=== PATIENT | male | born 1960 | race American Indian/Alaskan Native ===

== ENCOUNTER 2021-04-12 13:00 | Inpatient (IN) | payer MEDICAID ==
[2021-04-12] MEDS ORDERED: SODIUM CHLORIDE 0.9% 500 ML 500 ML IV ONE (13:38)
--- NOTE | 2021-04-12 13:39 | Emergency Department Report ---
ED Neuro Deficit HPI - General Chief Complaint: Neuro Symptoms/Deficit Stated Complaint: POSS STROKE/FACIAL DROOP Time Seen by Provider: 04/12/21 13:37 Source: patient, RN notes reviewed Mode of arrival: Wheelchair Limitations: Physical Limitation - History of Present Illness Initial Comments: The patient is a 60-year-old gentleman. He is not known to myself previously. He is right-hand dominant. He does not have a local primary care doctor. He sm okes tobacco, but denies other chronic medical conditions. He presents to the ER with a complaint of right arm, right leg weakness, right-sided facial droop, slurred speech, which were present upon waking up this morning at 8 or 9:00 in the morning. He believes his last known well time is going to bed last night, although he is not sure what specific time he went to bed. The patient fell this morning onto his right leg. He denies physical pain. He denies Covid symptomatology. His neurologic symptoms are constant, do not radiate anywhere, and do not have exacerbating or relieving factors. He feels fairly anxious at this time. -: unknown (Patient went to bed normal last night, and woke up this morning.) Location: speech, right face, right arm, right leg Presenting Symptoms: Present: Weak/Paralyzed One Side, Facial Droop/Numbness, Unable to Speak Clearly History of same: No Place: home Severity: severe Improves With: none Worsens With: none On Anticoagulants: No Context: other (Patient woke up with symptom) - Related Data Allergies/Adverse Reactions: Allergies Allergy/AdvReac Type Severity Reaction Status Date / Time No Known Allergies Allergy Unverified 04/12/21 13:07 ED Review of Systems ROS: Stated complaint: POSS STROKE/FACIAL DROOP Other details as noted in HPI Constitutional: denies: fever Eyes: denies: eye discharge ENT: denies: epistaxis Respiratory: denies: cough Cardiovascular: denies: chest pain Gastrointestinal: denies: abdominal pain, hematemesis, melena, hematochezia Musculoskeletal: denies: back pain Neurological: weakness, numbness Psychiatric: anxiety Hematological/Lymphatic: denies: easy bleeding ED Past Medical Hx - Past Medical History Previous Medical History?: Yes Hx Hypertension: Yes Hx Diabetes: Yes - Surgical History Past Surgical History?: Yes Additional Surgical History: hand surgery ED Neuro Physical Exam - General Limitations: Physical Limitation General appearance: alert, anxious, in distress, obese Suspected Stroke: Yes - Head Head exam: Present: atraumatic, normocephalic - Eye Eye exam: Present: normal appearance, PERRL, EOMI. Absent: nystagmus - ENT ENT exam: Present: normal exam, normal orophraynx, mucous membranes moist, normal external ear exam, other (There is a right-sided facial droop) - Neck Neck exam: Present: normal inspection, full ROM. Absent: tenderness, meningismus - Respiratory Respiratory exam: Present: normal lung sounds bilaterally. Absent: respiratory distress, wheezes, rales, rhonchi, stridor, decreased breath sounds - Cardiovascular Cardiovascular Exam: Present: regular rate, normal rhythm, normal heart sounds. Absent: bradycardia, tachycardia, irregular rhythm, systolic murmur, diastolic murmur, rubs, gallop - GI/Abdominal GI/Abdominal exam: Present: soft. Absent: distended, tenderness, guarding, rebound, rigid, pulsatile mass - Rectal Rectal exam: Present: deferred - Extremities Exam Extremities exam: Present: normal inspection, full ROM (Full range of motion left arm and left leg), other (2+ pulses noted in the bilateral upper and lower extremities. There is no palpable cord. negative Homans sign. Muscular compartments are soft. The pelvis is stable.). Absent: pedal edema, calf tenderness - Back Exam Back exam: Present: normal inspection. Absent: tenderness, CVA tenderness (R), CVA tenderness (L), paraspinal tenderness, vertebral tenderness - Neurological Exam Neurological exam: Present: alert, oriented X3, motor sensory deficit (There is 4 out of 5 strength right arm and right leg. There is a right-sided facial droop. The tongue is midline.) - NIHSS Assessment Interval: Baseline 1a. Level of Consciousness: alert/keenly responsive 1b. LOC Questions: answers both correctly 1c. LOC Commands: performs tasks correctly 2. Best Gaze: normal 3. Visual: no visual loss 4. Facial Palsy: partial paralysis 5b. Motor Arm Right: drift 5a. Motor Arm Left: no drift 6a. Motor Leg Left: no drift 6b. Motor Leg Right: drift 7. Limb Ataxia: present 2 limbs (Right arm and right leg.) 8. Sensory: normal 9. Best Language: no aphasia 10. Dysarthria: mild/moderate dysarthria 11. Extinction/Inattention: no abnormality Total Score: 7 Stroke Severity: Moderate Stroke - Psychiatric Psychiatric exam: Present: anxious - Skin Skin exam: Present: warm, dry, intact, normal color. Absent: rash ED Course Vital Signs 04/12/21 04/12/21 04/12/21 13:05 13:27 13:30 Temperature 98.2 F Pulse Rate 82 79 71 Respiratory 14 13 21 Rate Blood Pressure 217/109 226/114 O2 Sat by Pulse 99 98 97 Oximetry 04/12/21 04/12/21 04/12/21 14:26 15:00 15:46 Temperature Pulse Rate 69 70 79 Respiratory 20 18 14 Rate Blood Pressure 192/98 183/107 201/105 O2 Sat by Pulse 98 97 98 Oximetry 04/12/21 04/12/21 04/12/21 16:16 16:46 17:00 Temperature Pulse Rate 78 72 70 Respiratory 20 14 20 Rate Blood Pressure 194/102 173/101 178/104 O2 Sat by Pulse 95 96 98 Oximetry - Reevaluation(s) Reevaluation #1: 04/12/21 13:49 Differential diagnosis, including but not limited to: Stroke, large vessel occlusion, arterial dissection, hypertensive emergency Assessment and plan: 60-year-old gentleman, presenting with strokelike symptoms, manifest by right arm, right leg weakness, clumsiness, right-sided facial droop, and blood pressure 225 systolic. Patient woke up with symptoms, and is therefore not a TPA candidate. NIH score 7 for my examination, emergent CT angiogram head and neck requested. Code stroke called overhead, neurology consultation pending. Noncontrast CT scan of the brain negative for acute findings. Given blood pressure 225 systolic, labetalol ordered. Reassess after CT angiogram head and neck. Have discussed this plan of care with the patient who is amenable to the aforementioned. He did not fall and hit his head or neck today. There is no midline cervical spine pain or tenderness. 04/12/21 15:08 CT angiogram head and neck negative for acute findings that were require transfer for emergent endovascular intervention. Laboratory studies reviewed and appreciated. EKG pending. Aspirin will be ordered. Hospital physician, Dr. Edwards, to admit patient to the medical service. - Consultations Consultation #1: 04/12/21 14:24 Discussed history, physical, pertinent imaging studies and plan of care with n eurology on-call, Dr. Johnson. He is in agreement with the plan of care. Specifically, TPA not recommended given that patient woke up with symptoms. His NIH score on his examination is 4 for this patient. He is in agreement with acquisition of CT angiogram head and neck. - Lab Data Result diagrams: 04/12/21 13:35 04/12/21 13:35 Lab Results 04/12/21 04/12/21 04/12/21 Range/Units 13:07 13:35 13:35 WBC 5.1 (4.5-11.0) K/mm3 RBC 3.90 (3.65-5.03) M/mm3 Hgb 12.3 (11.8-15.2) gm/dl Hct 35.8 (35.5-45.6) % MCV 92 (84-94) fl MCH 32 (28-32) pg MCHC 34 (32-34) % RDW 13.8 (13.2-15.2) % Plt Count 218 (140-440) K/mm3 Add Manual Diff Complete Total Counted 100 Seg Neutrophils % [place] Seg Neuts % (Manual) 38.0 L (40.0-70.0) % Lymphocytes % (Manual) 51.0 H (13.4-35.0) % Reactive Lymphs % (Man) 4.0 % Monocytes % (Manual) 3.0 (0.0-7.3) % Eosinophils % (Manual) 4.0 (0.0-4.3) % Nucleated RBC % Not Reportable Seg Neutrophils # Man 1.9 (1.8-7.7) K/mm3 Band Neutrophils # 0.0 K/mm3 Lymphocytes # (Manual) 2.6 (1.2-5.4) K/mm3 Abs React Lymphs (Man) 0.2 K/mm3 Monocytes # (Manual) 0.2 (0.0-0.8) K/mm3 Eosinophils # (Manual) 0.2 (0.0-0.4) K/mm3 Basophils # (Manual) 0.0 (0.0-0.1) K/mm3 Metamyelocytes # 0.0 K/mm3 Myelocytes # 0.0 K/mm3 Promyelocytes # 0.0 K/mm3 Blast Cells # 0.0 K/mm3 WBC Morphology Not Reportable Hypersegmented Neuts Not Reportable Hyposegmented Neuts Not Reportable Hypogranular Neuts Not Reportable Smudge Cells Not Reportable Toxic Granulation Not Reportable Toxic Vacuolation Not Reportable Dohle Bodies Not Reportable Pelger-Huet Anomaly Not Reportable Natasha Rods Not Reportable Platelet Estimate Consistent w auto Clumped Platelets Not Reportable Plt Clumps, EDTA Not Reportable Large Platelets Not Reportable Giant Platelets Not Reportable Platelet Satelliting Not Reportable Plt Morphology Comment Not Reportable RBC Morphology Normal Dimorphic RBCs Not Reportable Polychromasia Not Reportable Hypochromasia Not Reportable Poikilocytosis Not Reportable Anisocytosis Not Reportable Microcytosis Not Reportable Macrocytosis Not Reportable Spherocytes Not Reportable Pappenheimer Bodies Not Reportable Sickle Cells Not Reportable Target Cells Not Reportable Tear Drop Cells Not Reportable Ovalocytes Not Reportable Helmet Cells Not Reportable [place] Bodies Not Reportable [place] Rings Not Reportable Dewitt Cells Not Reportable Bite Cells Not Reportable Crenated Cell Not Reportable Elliptocytes Not Reportable Acanthocytes (Spur) Not Reportable Rouleaux Not Reportable Hemoglobin C Crystals Not Reportable Schistocytes Not Reportable Malaria parasites Not Reportable Velasquez Bodies Not Reportable Hem Pathologist Commnt No PT 13.2 (12.2-14.9) Sec. INR 0.94 (0.87-1.13) APTT 29.4 (24.2-36.6) Sec. Thrombin Time (15.1-19.6) Sec. Sodium (137-145) mmol/L Potassium (3.6-5.0) mmol/L Chloride (98-107) mmol/L Carbon Dioxide (22-30) mmol/L Anion Gap mmol/L BUN (9-20) mg/dL Creatinine (0.8-1.3) mg/dL Estimated GFR ml/min BUN/Creatinine Ratio % Glucose (75-100) mg/dL POC Glucose 141 H (70-105) mg/dL Calcium (8.4-10.2) mg/dL Magnesium (1.7-2.3) mg/dL Total Creatine Kinase (55-170) units/L Troponin T (0.00-0.029) ng/mL 04/12/21 04/12/21 Range/Units 13:35 13:35 WBC (4.5-11.0) K/mm3 RBC (3.65-5.03) M/mm3 Hgb (11.8-15.2) gm/dl Hct (35.5-45.6) % MCV (84-94) fl MCH (28-32) pg MCHC (32-34) % RDW (13.2-15.2) % Plt Count (140-440) K/mm3 Add Manual Diff Total Counted Seg Neutrophils % Seg Neuts % (Manual) (40.0-70.0) % Lymphocytes % (Manual) (13.4-35.0) % Reactive Lymphs % (Man) % Monocytes % (Manual) (0.0-7.3) % Eosinophils % (Manual) (0.0-4.3) % Nucleated RBC % Seg Neutrophils # Man (1.8-7.7) K/mm3 Band Neutrophils # K/mm3 Lymphocytes # (Manual) (1.2-5.4) K/mm3 Abs React Lymphs (Man) K/mm3 Monocytes # (Manual) (0.0-0.8) K/mm3 Eosinophils # (Manual) (0.0-0.4) K/mm3 Basophils # (Manual) (0.0-0.1) K/mm3 Metamyelocytes # K/mm3 Myelocytes # K/mm3 Promyelocytes # K/mm3 Blast Cells # K/mm3 WBC Morphology Hypersegmented Neuts Hyposegmented Neuts Hypogranular Neuts Smudge Cells Toxic Granulation Toxic Vacuolation Dohle Bodies Pelger-Huet Anomaly Natasha Rods Platelet Estimate Clumped Platelets Plt Clumps, EDTA Large Platelets Giant Platelets Platelet Satelliting Plt Morphology Comment RBC Morphology Dimorphic RBCs Polychromasia Hypochromasia Poikilocytosis Anisocytosis Microcytosis Macrocytosis Spherocytes Pappenheimer Bodies Sickle Cells Target Cells Tear Drop Cells Ovalocytes Helmet Cells [place] Bodies [place] Rings Dewitt Cells Bite Cells Crenated Cell Elliptocytes Acanthocytes (Spur) Rouleaux Hemoglobin C Crystals Schistocytes Malaria parasites Velasquez Bodies Hem Pathologist Commnt PT (12.2-14.9) Sec. INR (0.87-1.13) APTT (24.2-36.6) Sec. Thrombin Time 17.1 (15.1-19.6) Sec. Sodium 140 (137-145) mmol/L Potassium 4.2 (3.6-5.0) mmol/L Chloride 103.0 (98-107) mmol/L Carbon Dioxide 30 (22-30) mmol/L Anion Gap 11 mmol/L BUN 15 (9-20) mg/dL Creatinine 1.3 (0.8-1.3) mg/dL Estimated GFR > 60 ml/min BUN/Creatinine Ratio 12 % Glucose 110 H (75-100) mg/dL POC Glucose (70-105) mg/dL Calcium 9.2 (8.4-10.2) mg/dL Magnesium 1.80 (1.7-2.3) mg/dL Total Creatine Kinase 697 H (55-170) units/L Troponin T < 0.010 (0.00-0.029) ng/mL Vital Signs 04/12/21 04/12/21 04/12/21 13:05 13:27 13:30 Temperature 98.2 F Pulse Rate 82 79 71 Respiratory 14 13 21 Rate Blood Pressure 217/109 226/114 O2 Sat by Pulse 99 98 97 Oximetry 04/12/21 04/12/21 04/12/21 14:26 15:00 15:46 Temperature Pulse Rate 69 70 79 Respiratory 20 18 14 Rate Blood Pressure 192/98 183/107 201/105 O2 Sat by Pulse 98 97 98 Oximetry 04/12/21 04/12/21 04/12/21 16:16 16:46 17:00 Temperature Pulse Rate 78 72 70 Respiratory 20 14 20 Rate Blood Pressure 194/102 173/101 178/104 O2 Sat by Pulse 95 96 98 Oximetry - EKG Data -: EKG Interpreted by [place] EKG shows normal: sinus rhythm Rate: normal 04/12/21 19:15 EKG interpreted at 19: 11 This is a sinus rhythm, rate 60 bpm, with a normal P wave axis, normal axis, left ventricular hypertrophy, first-degree AV block, poor R wave progression, T wave inversions. Abnormal EKG. Not a STEMI. No prior for comparison. - Radiology Data Radiology results: report reviewed, image reviewed [facility] [address] [place] [address] Cat Scan Report Signed Patient: ANDIE RAMIREZ MR#: [id number] 221 : 1960 Acct:[id number] Age/Sex: 60 / M ADM Date: 04/12/21 Loc: ED Attending Dr: Ordering Physician: CHIQUI ALEXANDER MD Date of Service: 04/12/21 Procedure(s): CT head/brain wo con Accession Number(s): [id number] cc: CHIQUI ALEXANDER MD . CT head/brain wo con INDICATION / CLINICAL INFORMATION: 60 years Male; neuro deficits <6hrs or sx present upon awakening. Left MCA infarct suspected. TECHNIQUE: Routine CT head without contrast. All CT scans at this location are performed using CT dose reduction for ALARA by means of automated exposure control. COMPARISON: None. FINDINGS: BRAIN / INTRACRANIAL CONTENTS: Very small corpus striatal infarct seen on the qupi-qtm-tyewbydacuteb without diffusion imaging by MRI. Otherwise, no acute hemorrhage, mass effect, midline shift, hydrocephalus, or acute, large territorial infarct. No signs of significant atrophy or chronic infarct. Mild, nonspecific white matter disease suggested. Note, the basilar artery is slightly hyperdense superiorly, which may be related to skull base artifact. No definitive signs of brainstem ischemia appreciated currently. CRANIOCERVICAL JUNCTION: No significant abnormality. ORBITS: No significant abnormality of visualized orbits. SINUSES / MASTOIDS: Mild to moderate mucosal thickening in the ethmoids ADDITIONAL FINDINGS: Atherosclerotic disease is seen in the anterior and posterior circulation. IMPRESSION: 1. No focal mass, hemorrhage, hydrocephalus, or acute, large territorial infarct. CODE STROKE: Exam Completed (BOX TOE FLANGER STITCHDOWNS/CDT): 04/12/2021 12:22 PM Exam Reviewed (BOX TOE FLANGER STITCHDOWNS/CDT): 12:30 PM Time of Communication (BOX TOE FLANGER STITCHDOWNS/CDT): 12:33 PM Licensed Practitioner Receiving Report: Dr. Alexander Signer Name: Daniel Arnold MD, III Signed: 04/12/2021 1:35 PM Workstation Name: [id number] Transcribed By: HR Dictated By: Daniel Arnold MD Electronically Authenticated By: Daniel Arnold MD Signed Date/Time: 04/12/21 1335 DD/ 1330 CT angio head INDICATION / CLINICAL INFORMATION: 60 years Male; Acute stroke. TECHNIQUE: Thin cut axial images obtained through the head during IV bolus contrast administration. Sagittal, coronal, and 3 plane MIP reconstructions performed by the technologist. NASCET type criteria used evaluate stenoses. Automated exposure control utilized for radiation reduction purposes. CO MPARISON: None available. FINDINGS: INTERNAL CAROTID ARTERIES: Focal areas of narrowing seen in the cavernous and communicating portions of both internal carotid arteries-right greater than left. No complete occlusion seen. VERTEBROBASILAR SYSTEM: No significant narrowing appreciated. DISTAL BRANCHES: Distal branches of the anterior, middle, and posterior cerebral arteries are fairly symmetric in appearance and number. ANEURYSM: None identified. ADDITIONAL FINDINGS: Prominent soft tissue is seen in the roof the nasopharynx, presumably related to reactive adenoidal tissue. Please clinically correlate. Dilated intraglandular ducts seen in both submandibular glands. No definitive signs of main submandibular duct involvement appreciated, however. No evidence of sialolith. Prominent soft tissue is seen in the vallecula, presumably related to lingual tonsillar tissue, which may be reactive. Please clinically correlate. IMPRESSION: Narrowing seen in both internal carotid arteries-right greater than left-as described above. No large vessel occlusion appreciated. Signer Name: Daniel Arnold MD, III Signed: 04/12/2021 1:48 PM Workstation Name: [id number] CT angio head INDICATION / CLINICAL INFORMATION: 60 years Male; Acute stroke. TECHNIQUE: Thin cut axial images obtained through the head during IV bolus contrast administration. Sagittal, coronal, and 3 plane MIP reconstructions performed by the technologist. NASCET type criteria used evaluate stenoses. Automated exposure control utilized for radiation reduction purposes. COMPARISON: None available. FINDINGS: INTERNAL CAROTID ARTERIES: Focal areas of narrowing seen in the cavernous and communicating portions of both internal carotid arteries-right greater than left. No complete occlusion seen. VERTEBROBASILAR SYSTEM: No significant narrowing appreciated. DISTAL BRANCHES: Distal branches of the anterior, middle, and posterior cerebral arteries are fairly symmetric in appearance and number. ANEURYSM: None identified. ADDITIONAL FINDINGS: Prominent soft tissue is seen in the roof the nasopharynx, presumably related to reactive adenoidal tissue. Please clinically correlate. Dilated intraglandular ducts seen in both submandibular glands. No definitive signs of main submandibular duct involvement appreciated, however. No evidence of sialolith. Prominent soft tissue is seen in the vallecula, presumably related to lingual tonsillar tissue, which may be reactive. Please clinically correlate. IMPRESSION: Narrowing seen in both internal carotid arteries-right greater than left-as described above. No large vessel occlusion appreciated. Signer Name: Daniel Arnold MD, III Signed: 04/12/2021 1:48 PM Workstation Name: [id number] - Core Measures Measure Exclusions: not indicated - Thrombolytic Inclusion/Exclusion Thrombolytic Exclusion Criteria: Onset of Symptoms Unknown Critical Care Time: Yes Critical care time in (mins) excluding proc time.: 35 Critical care attestation.: If time is entered above; I have spent that time in minutes in the direct care of this critically ill patient, excluding procedure time. ED Disposition Clinical Impression: Acute ischemic stroke, Hypertensive urgency, malignant Disposition: DC-09 OP ADMIT IP TO THIS HOSP Is pt being admited?: Yes Does the pt Need Aspirin: Yes Condition: Serious Referrals: PRIMARY CARE, [Primary Care Provider] - 3-5 Days
--- NOTE | 2021-04-12 13:39 | Cat Scan Report ---
. CT head/brain wo con INDICATION / CLINICAL INFORMATION: 60 years Male; neuro deficits <6hrs or sx present upon awakening. Left MCA infarct suspected. TECHNIQUE: Routine CT head without contrast. All CT scans at this location are performed using CT dos e reduction for ALARA by means of automated exposure control. COMPARISON: None. FINDINGS: BRAIN / INTRACRANIAL CONTENTS: Very small corpus striatal infarct seen on the echc-qls-plexzjbrqjgeu without diffusion imaging by MRI. Otherwise, no acute hemorrhage, mass effect, midline shift, hydrocephalus, or acute, large territori al infarct. No signs of significant atrophy or chronic infarct. Mild, nonspecific white matter diseas e suggested. Note, the basilar artery is slightly hyperdense superiorly, which may be related to skull base artifa ct. No definitive signs of brainstem ischemia appreciated currently. CRANIOCERVICAL JUNCTION: No significant abnormality. ORBITS: No significant abnormality of visualized orbits. SINUSES / MASTOIDS: Mild to moderate mucosal thickening in the ethmoids ADDITIONAL FINDINGS: Atherosclerotic disease is seen in the anterior and posterior circulation. IMPRESSION: 1. No focal mass, hemorrhage, hydrocephalus, or acute, large territorial infarct. CODE STROKE: Exam Completed (CLINICAL GENETICIST/CDT): 04/12/2021 12:22 PM Exam Reviewed (CLINICAL GENETICIST/CDT): 12:30 PM Time of Communication (CLINICAL GENETICIST/CDT): 12:33 PM Licensed Practitioner Receiving Report: Dr. Alexander Signer Name: Daniel Arnold MD, III Signed: 04/12/2021 1:35 PM Workstation Name: [email or web address]
[2021-04-12 13:46] LABS: Hematocrit 35.8 % (35.5-45.6); Hemoglobin 12.3 gm/dl (11.8-15.2); Mean Corpuscular HGB Conc 34 % (32-34); Mean Corpuscular Volume 92 fl (84-94); Platelet Count 218 K/mm3 (140-440); Red Cell Distribution Width 13.8 % (13.2-15.2)
[2021-04-12 13:58] LABS: INR 0.94 (0.87-1.13)
[2021-04-12 13:59] LABS: Partial Thromboplastin Time 29.4 Sec. (24.2-36.6)
[2021-04-12 14:11] LABS: BUN/Creatinine Ratio 12; Blood Urea Nitrogen 15 mg/dL (9-20); Calcium 9.2 mg/dL (8.4-10.2); Hemolysis Index 3
[2021-04-12] MEDS ORDERED: SODIUM CHLORIDE 0.9% 1000 ML 1,000 ML ONE (14:22)
--- NOTE | 2021-04-12 14:43 | Consultation ---
Medications and Allergies Allergies Allergy/AdvReac Type Severity Reaction Status Date / Time No Known Allergies Allergy Unverified 04/12/21 13:07 Results - Laboratory Findings CBC and BMP: 04/12/21 13:35 04/12/21 13:35 Abnormal Lab Findings: Abnormal Labs 04/12/21 04/12/21 13:07 13:35 Glucose 110 H POC Glucose 141 H Total Creatine Kinase 697 H Assessment and Plan [facility] Consult Note # Demographics Consult Type: Acute Stroke Level 2 (4.5-24 hrs) Patient Location: Emergency Room First Name: Eddie Castillo Last Name: Yonny Date of : 1960 Age: 60 Gender: Male Time of Initial Page ( Time): 04/12/2021, 13:15 Time of Return Call ( Time): 04/12/2021, 13:17 # HPI History: 60 yo man awoke this morning wtih right-sided numbness and weakness. Last known normal at 23:00 last night. Is currently no on any medication Last Known Normal: I have collected independent history specific to time last normal or last known well. We have collaborated with the provider and at this time, we have the most current timeline with the information that is available. 23:00 # Scores Time of exam and NIHSS ( Time): 04/12/2021, 13:40 Level of Consciousness 1a: [0] = Alert; keenly responsive LOC Questions 1b: [0] = Answers both questions correctly LOC Commands 1c: [0] = Performs both tasks correctly Best Gaze 2: [0] = Normal Visual 3: [0] = No visual loss Facial Palsy 4: [1] = Minor paralysis Motor Arm Left 5a: [0] = No drift Motor Arm Right 5b: [1] = Drift Motor Leg Left 6a: [0] = No drift Motor Leg Right 6b: [0] = No drift Limb Ataxia 7: [0] = Absent Sensory 8: [1] = Sxmy-rs-vozpgqyk sensory loss Best Language 9: [0] = No aphasia Dysarthria 10: [1] = Lkyr-is-eswaornv dysarthria Extinction and Inattention 11: [0] = No abnormality NIHSS Total: 4 # Exam SBP: 226 DBP: 114 # PMH-FH- Past Medical History: Diabetes hypertension Social History: non-smoker occasional alcohol Medications: denies Allergies: NKDA # Data Head CT: no bleed per radiologist read # Assessment Impression: Right-sided numbness since awakening this morning. Symptoms concerning for acute stroke. Is not a candidate for IV tpa. # Plan Thrombolytic/Intervention: NOT IV Thrombolytic or IA Intervention Thrombolytic Exclusion: > 4.5 hours Intraarterial Exclusion: other CTA pending, call back if abnormal Target Blood Pressure: SBP < 220 Labs: hemoglobin A1c liver function tests Imaging: (urgency: STAT): CT Angiogram Head and CT Angiogram Neck Imaging: (urgency: routine): MRI Brain without contrast Diagnostic Test: echo with bubble study Therapy/Evaluation: NPO until swallow evaluation PT/OT evaluation speech/swallow consultation Medication: aspirin 81 mg daily DVT Prophylaxis: SCD chemical DVT prophylaxis Other: LDL < 70 permissive hypertension telemetry monitoring I have discussed my recommendations with the referring provider Disposition: admit
--- NOTE | 2021-04-12 14:53 | Cat Scan Report ---
CT angio head INDICATION / CLINICAL INFORMATION: 60 years Male; Acute stroke. TECHNIQUE: Thin cut axial images obtained through the head during IV bolus contrast administration. S agittal, coronal, and 3 plane MIP reconstructions performed by the technologist. NASCET type criteria used evaluate stenoses. Automated exposure control utilized for radiation reduction purposes. COMPARISON: None available. FINDINGS: INTERNAL CAROTID ARTERIES: Focal areas of narrowing seen in the cavernous and communicating portions of both internal carotid arteries-right greater than left. No complete occlusion seen. VERTEBROBASILAR SYSTEM: No significant narrowing appreciated. DISTAL BRANCHES: Distal branches of the anterior, middle, and posterior cerebral arteries are fairly symmetric in appearance and number. ANEURYSM: None identified. ADDITIONAL FINDINGS: Prominent soft tissue is seen in the roof the nasopharynx, presumably related to reactive adenoidal tissue. Please clinically correlate. Dilated intraglandular ducts seen in both submandibular glands. No definitive signs of main submandib ular duct involvement appreciated, however. No evidence of sialolith. Prominent soft tissue is seen in the vallecula, presumably related to lingual tonsillar tissue, which may be reactive. Please clinically correlate. IMPRESSION: Narrowing seen in both internal carotid arteries-right greater than left-as described above. No large vessel occlusion appreciated. Signer Name: Daniel Arnold MD, III Signed: 04/12/2021 2:48 PM Workstation Name: [email or web address]
--- NOTE | 2021-04-12 14:56 | Cat Scan Report ---
. CT angio neck INDICATION / CLINICAL INFORMATION: 60 years Male; Acute stroke. TECHNIQUE: Thin cut axial images obtained through the head during IV bolus contrast administration. S agittal, coronal, and 3 plane MIP reconstructions performed by the technologist. NASCET type criteria used evaluate stenoses. All CT scans at this location are performed using CT dose reduction for ALAR A by means of automated exposure control. COMPARISON: None available. FINDINGS: ARCH: Normal aortic arch branching suggested. CAROTID ARTERIES: The visualized common and internal carotid arteries are widely patent. Atherosclero tic disease seen in the carotid bifurcation regions bilaterally without significant sequela. VERTEBRAL ARTERIES: Codominant vertebral system seen. No significant stenosis appreciated. ADDITIONAL FINDINGS: Disc space narrowing seen at C6-7 and C5-6. Mild disc disease seen at these leve ls, resulting in mild canal narrowing. Moderate to marked osseous foraminal narrowing seen bilaterall y at C6-7 from uncinate and facet hypertrophy. Similar findings noted on the right at C5-6. There is moderate facet hypertrophy at multiple levels. Most marked findings on the right may be at C 2-3, while most marked findings on the left are at C3-4. Poor dentition noted. Intraglandular ductal dilatation seen in both submandibular gland. No definitive signs of sialolith. IMPRESSION: No significant stenosis appreciated on this CTA of the neck. Signer Name: Daniel Arnold MD, III Signed: 04/12/2021 2:52 PM Workstation Name: [email or web address]
[2021-04-12] MEDS ORDERED: ASPIRIN 81 MG TAB CHEW PO ONE (15:09)
[2021-04-12 15:47] LABS: Platelet Estimate Consistent w Auto; RBC Morphology Normal; Total Cells Counted 100
[2021-04-12] MEDS ORDERED: SENNOSIDES 8.6 MG TAB PO PRN (20:55)
[2021-04-12] MEDS ORDERED: METOCLOPRAMIDE 10 MG/2 ML INJ IV PRN (20:55)
[2021-04-12] MEDS ORDERED: MAGNESIUM HYDROXIDE (MOM) ORAL LIQD UDC PO PRN (20:55)
[2021-04-12] MEDS ORDERED: ALUM-MAG HYDROXIDE-SIMETHICONE 200-200-20MG/5ML ORAL LIQD 30 ML PO PRN (20:55)
[2021-04-12] MEDS ORDERED: ONDANSETRON 4 MG/2 ML INJ IV PRN (20:55)
[2021-04-12] MEDS ORDERED: ACETAMINOPHEN 325 MG TAB PO PRN (20:55)
[2021-04-13] MEDS ORDERED: hydrALAZINE 20 MG/1 ML INJ IV ONE (00:11)
[2021-04-13 06:38] LABS: Hematocrit 36.7 % (35.5-45.6); Hemoglobin 12.5 gm/dl (11.8-15.2); Mean Corpuscular HGB Conc 34 % (32-34); Mean Corpuscular Volume 92 fl (84-94); Platelet Count 222 K/mm3 (140-440); Red Blood Count 4.01 M/mm3 (3.65-5.03); Red Cell Distribution Width 13.7 % (13.2-15.2)
[2021-04-13 06:52] LABS: Alanine Aminotransferase 15 units/L (7-56); Albumin 3.7 g/dL (3.9-5); BUN/Creatinine Ratio 10; Blood Urea Nitrogen 10 mg/dL (9-20); Calcium 8.9 mg/dL (8.4-10.2); Hemolysis Index 3
[2021-04-13 08:10] LABS: Total Cells Counted 100
[2021-04-13 08:11] LABS: Anisocytosis Few
--- NOTE | 2021-04-13 10:16 | Progress Note ---
Assessment and Plan Assessment and plan: Patient is a 60-year-old male who presented to the ER with complaint of right arm, right leg weakness, right-sided facial droop, slurred speech, which were present upon waking up this morning at 8 or 9:00 in the morning. He is right- hand dominant. He does use tobacco. He believes his last known well time is going to bed last night, although he is not sure what specific time he went to bed. He also reported a fall this morning onto his right leg. He denies physical pain. He denies Covid symptomatology. His neurologic symptoms are constant, do not radiate anywhere, and do not have exacerbating or relieving factors. He feels fairly anxious at this time. -: unknown (Patient went to bed normal last night, and woke up this morning.) Location: speech, right face, right arm, right leg Presenting Symptoms: Present: Weak/Paralyzed One Side, Facial Droop/Numbness, Unable to Speak Clearly Work-up in the ER including CT head and CT angio head and neck were unremarkable Hypertensive urgency Right sided weakness with facial droop likely crytogenic CVA Tobacco use disorder Bradycardia Facial droop Chronic back pain ambulates with a cane Hypokalemia Plan Supportive care Replace potassium Continue aspirin and statin therapy Tobacco cessation was counseled for 15-minute Obtain PT OT evaluation Obtain MRI of the brain Obtain echocardiogram Obtain neurology consultation We will start patient on hydrochlorothiazide and as needed hydralazine for better blood pressure control. If no improvement will add an LASHONDA inhibitor.. History Interval history: Patient seen and examined this morning resting comfortably still with left facial droop still with mild right-sided weakness admits to tobacco use occasional alcohol use and noncompliant with aspirin. Has chronic back pain fro m previous injuries. As a result ambulates with a cane Hospitalist Physical - Physical exam Narrative exam: VITAL SIGNS: Reviewed. GENERAL: The patient appears normally developed, Vital signs as documented. HEAD: No signs of head trauma. EYES: Pupils are equal. Extraocular motions intact. EARS: Hearing grossly intact. MOUTH: Oropharynx is normal. NECK: No adenopathy, no JVD. CHEST: Chest with clear breath sounds bilaterally. No wheezes, rales, or rhonchi. CARDIAC: Regular rate and rhythm. S1 and S2, without murmurs, gallops, or rubs. VASCULAR: No Edema. Peripheral pulses normal and equal in all extremities. ABDOMEN: Soft, non tender and non distended. No rebound or guarding, and no masses palpated. Bowel Sounds normal. MUSCULOSKELETAL: Good range of motion of all major joints. Extremities without clubbing, cyanosis or edema. NEUROLOGIC EXAM: Alert and oriented x 3 left facial droop motor strength on the right is 4/5. Speech normal. Follows commands. Gait not assessed at this ti ma PSYCHIATRIC: Mood normal. SKIN: detail exam as documented in skin assessment - Constitutional Vitals: Temp Pulse Resp BP Pulse Ox 98.6 F 79 20 174/89 100 04/13/21 04:29 04/13/21 04:29 04/13/21 04:29 04/13/21 04:29 04/13/21 04:29 HEART Score - HEART Score Troponin: Troponin T < 0.010 ng/mL (0.00-0.029) 04/12/21 13:35 Results - Labs CBC & Chem 7: 04/13/21 05:27 04/13/21 05:27 Labs: Laboratory Last Values WBC 5.0 K/mm3 (4.5-11.0) 04/13/21 05:27 RBC 4.01 M/mm3 (3.65-5.03) 04/13/21 05:27 Hgb 12.5 gm/dl (11.8-15.2) 04/13/21 05:27 Hct 36.7 % (35.5-45.6) 04/13/21 05:27 MCV 92 fl (84-94) 04/13/21 05:27 MCH 31 pg (28-32) 04/13/21 05:27 MCHC 34 % (32-34) 04/13/21 05:27 RDW 13.7 % (13.2-15.2) 04/13/21 05:27 Plt Count 222 K/mm3 (140-440) 04/13/21 05:27 Lymph % (Auto) Police Patrol Officer 04/13/21 05:27 Add Manual Diff Complete 04/13/21 05:27 Total Counted 100 04/13/21 05:27 Seg Neutrophils % Police Patrol Officer 04/13/21 05:27 Seg Neuts % (Manual) 37.0 % (40.0-70.0) L 04/13/21 05:27 Lymphocytes % (Manual) 54.0 % (13.4-35.0) H 04/13/21 05:27 Reactive Lymphs % (Man) 4.0 % 04/12/21 13:35 Monocytes % (Manual) 6.0 % (0.0-7.3) 04/13/21 05:27 Eosinophils % (Manual) 3.0 % (0.0-4.3) 04/13/21 05:27 Nucleated RBC % Not Reportable 04/13/21 05:27 Seg Neutrophils # Man 1.9 K/mm3 (1.8-7.7) 04/13/21 05:27 Band Neutrophils # 0.0 K/mm3 04/13/21 05:27 Lymphocytes # (Manual) 2.7 K/mm3 (1.2-5.4) 04/13/21 05:27 Abs React Lymphs (Man) 0.0 K/mm3 04/13/21 05:27 Monocytes # (Manual) 0.3 K/mm3 (0.0-0.8) 04/13/21 05:27 Eosinophils # (Manual) 0.2 K/mm3 (0.0-0.4) 04/13/21 05:27 Basophils # (Manual) 0.0 K/mm3 (0.0-0.1) 04/13/21 05:27 Metamyelocytes # 0.0 K/mm3 04/13/21 05:27 Myelocytes # 0.0 K/mm3 04/13/21 05:27 Promyelocytes # 0.0 K/mm3 04/13/21 05:27 Blast Cells # 0.0 K/mm3 04/13/21 05:27 WBC Morphology Not Reportable 04/13/21 05:27 Hypersegmented Neuts Not Reportable 04/13/21 05:27 Hyposegmented Neuts Not Reportable 04/13/21 05:27 Hypogranular Neuts Not Reportable 04/13/21 05:27 Smudge Cells Not Reportable 04/13/21 05:27 Toxic Granulation Not Reportable 04/13/21 05:27 Toxic Vacuolation Not Reportable 04/13/21 05:27 Dohle Bodies Not Reportable 04/13/21 05:27 Pelger-Huet Anomaly Not Reportable 04/13/21 05:27 Natasha Rods Not Reportable 04/13/21 05:27 Platelet Estimate Not Reportable 04/13/21 05:27 Clumped Platelets Not Reportable 04/13/21 05:27 Plt Clumps, EDTA Not Reportable 04/13/21 05:27 Large Platelets Not Reportable 04/13/21 05:27 Giant Platelets Not Reportable 04/13/21 05:27 Platelet Satelliting Not Reportable 04/13/21 05:27 Plt Morphology Comment Not Reportable 04/13/21 05:27 RBC Morphology Not Reportable 04/13/21 05:27 Dimorphic RBCs Not Reportable 04/13/21 05:27 Polychromasia Not Reportable 04/13/21 05:27 Hypochromasia Not Reportable 04/13/21 05:27 Poikilocytosis Not Reportable 04/13/21 05:27 Anisocytosis Few 04/13/21 05:27 Microcytosis Not Reportable 04/13/21 05:27 Macrocytosis Not Reportable 04/13/21 05:27 Spherocytes Not Reportable 04/13/21 05:27 Pappenheimer Bodies Not Reportable 04/13/21 05:27 Sickle Cells Not Reportable 04/13/21 05:27 Target Cells Not Reportable 04/13/21 05:27 Tear Drop Cells Not Reportable 04/13/21 05:27 Ovalocytes Not Reportable 04/13/21 05:27 Helmet Cells Not Reportable 04/13/21 05:27 [place]ke[place] Bodies Not Reportable 04/13/21 05:27 [place] Rings Not Reportable 04/13/21 05:27 [place] Cells Not Reportable 04/13/21 05:27 Bite Cells Not Reportable 04/13/21 05:27 Crenated Cell Not Reportable 04/13/21 05:27 Elliptocytes Not Reportable 04/13/21 05:27 Acanthocytes (Spur) Not Reportable 04/13/21 05:27 Rouleaux Not Reportable 04/13/21 05:27 Hemoglobin C Crystals Not Reportable 04/13/21 05:27 Schistocytes Not Reportable 04/13/21 05:27 Malaria parasites Not Reportable 04/13/21 05:27 Velasquez Bodies Not Reportable 04/13/21 05:27 Hem Pathologist Commnt No 04/13/21 05:27 PT 13.2 Sec. (12.2-14.9) 04/12/21 13:35 INR 0.94 (0.87-1.13) 04/12/21 13:35 APTT 29.4 Sec. (24.2-36.6) 04/12/21 13:35 Thrombin Time 17.1 Sec. (15.1-19.6) 04/12/21 13:35 Sodium 138 mmol/L (137-145) 04/13/21 05:27 Potassium 3.5 mmol/L (3.6-5.0) L 04/13/21 05:27 Chloride 104.5 mmol/L (98-107) 04/13/21 05:27 Carbon Dioxide 24 mmol/L (22-30) 04/13/21 05:27 Anion Gap 13 mmol/L 04/13/21 05:27 BUN 10 mg/dL (9-20) 04/13/21 05:27 Creatinine 1.0 mg/dL (0.8-1.3) 04/13/21 05:27 Estimated GFR > 60 ml/min 04/13/21 05:27 BUN/Creatinine Ratio 10 % 04/13/21 05:27 Glucose 142 mg/dL (75-100) H 04/13/21 05:27 POC Glucose 141 mg/dL (70-105) H 04/12/21 13:07 Hemoglobin A1c 7.0 % (4-6) H 04/12/21 21:02 Calcium 8.9 mg/dL (8.4-10.2) 04/13/21 05:27 Magnesium 1.80 mg/dL (1.7-2.3) 04/12/21 13:35 Total Bilirubin 0.40 mg/dL (0.1-1.2) 04/13/21 05:27 AST 25 units/L (5-40) 04/13/21 05:27 ALT 15 units/L (7-56) 04/13/21 05:27 Alkaline Phosphatase 63 units/L (35-129) 04/13/21 05:27 Total Creatine Kinase 697 units/L (55-170) H 04/12/21 13:35 Troponin T < 0.010 ng/mL (0.00-0.029) 04/12/21 13:35 Total Protein 6.8 g/dL (6.3-8.2) 04/13/21 05:27 Albumin 3.7 g/dL (3.9-5) L 04/13/21 05:27 Albumin/Globulin Ratio 1.2 % 04/13/21 05:27 Crews/IV: Voiding Method Toilet Active Medications - Current Medications Current Medications: Generic Name Dose Route Start Last Admin Trade Name Freq PRN Reason Stop Dose Admin Acetaminophen 650 mg 04/12/21 20:55 Acetaminophen 325 Mg Tab PO Q4H PRN Pain MILD(1-3)/Fever >100.5/DELAROSA Al Hydrox/Mg Hydrox/Simethicone 30 ml 04/12/21 20:55 Alum-Mag Hydroxide-Simethicone [id number]/5ml Oral Liqd 30 Ml PO Q4H PRN Indigestion Aspirin 81 mg 04/14/21 10:00 Aspirin 81 Mg Tab Chew PO QDAY [facility] Atorvastatin Calcium 40 mg 04/13/21 22:00 Atorvastatin 40 Mg Tab PO QHS [facility] Hydrochlorothiazide 25 mg 04/13/21 11:00 Hydrochlorothiazide 25 Mg Tab PO QDAY DON Magnesium Hydroxide 30 ml 04/12/21 20:55 Magnesium Hydroxide (Mom) Oral Liqd Udc PO Q4H PRN Constipation Metoclopramide HCl 10 mg 04/12/21 20:55 Metoclopramide 10 Mg/2 Ml Inj IV Q6H PRN Nausea And Vomiting Ondansetron HCl 4 mg 04/12/21 20:55 Ondansetron 4 Mg/2 Ml Inj IV Q8H PRN Nausea And Vomiting Senna 8.6 mg 04/12/21 20:55 Sennosides 8.6 Mg Tab PO Q12HR PRN Constipation Sodium Chloride 10 ml 04/12/21 22:00 04/13/21 09:46 Sodium Chloride 0.9% 10 Ml Flush Syringe IV 10 ml BID DON Administration Sodium Chloride 10 ml 04/12/21 20:55 Sodium Chloride 0.9% 10 Ml Flush Syringe IV PRN PRN LINE FLUSH Nutrition/Malnutrition Assess - Dietary Evaluation Nutrition/Malnutrition Findings: Nutrition Notes Start: 04/13/21 09:43 Freq: Status: Active Protocol: Document 04/13/21 09:43 ROSELYN (Rec: 04/13/21 09:43 ROSELYN [id number]) Nutrition Notes Need for Assessment generated from: white work cleaner Initial or Follow up Brief Note Subjective/Other Information RN screen for skin risk. Brendon score 20. Likely an error. Nutrition Intervention Revisit per MD consult or patient Sign Off request:
[2021-04-13] MEDS ORDERED: hydrALAZINE 20 MG/1 ML INJ IV PRN (10:19)
[2021-04-13] MEDS ORDERED: atenoloL 25 MG TAB PO SCH (11:00)
[2021-04-13] MEDS: hydroCHLOROthiazide 25 MG TAB PO SCH (13:05)
--- NOTE | 2021-04-13 13:20 | Electrocardiograph Report ---
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
[2021-04-14] MEDS: ASPIRIN 81 MG TAB CHEW PO SCH (10:43)
[2021-04-14] MEDS: hydroCHLOROthiazide 25 MG TAB PO SCH (10:43)
--- NOTE | 2021-04-14 11:27 | Progress Note ---
Assessment and Plan Assessment and plan: Patient is a 60-year-old male who presented to the ER with complaint of right arm, right leg weakness, right-sided facial droop, slurred speech, which were present upon waking up this morning at 8 or 9:00 in the morning. He is right- hand dominant. He does use tobacco. He believes his last known well time is going to bed last night, although he is not sure what specific time he went to bed. He also reported a fall this morning onto his right leg. He denies physical pain. He denies Covid symptomatology. His neurologic symptoms are constant, do not radiate anywhere, and do not have exacerbating or relieving factors. He feels fairly anxious at this time. 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 If no improvement will add an LASHONDA inhibitor.. History Interval history: Patient seen and examined this morning resting comfortably still with left facial droop still with mild right-sided weakness admits to tobacco use occasion al alcohol use and noncompliant with aspirin. Has chronic back pain from previous injuries. As a result ambulates with a cane Hospitalist Physical - Physical exam Narrative exam: VITAL SIGNS: Reviewed. GENERAL: The patient appears normally developed, Vital signs as documented. HEAD: No signs of head trauma. EYES: Pupils are equal. Extraocular motions intact. EARS: Hearing grossly intact. MOUTH: Oropharynx is normal. NECK: No adenopathy, no JVD. CHEST: Chest with clear breath sounds bilaterally. No wheezes, rales, or rhonchi. CARDIAC: Regular rate and rhythm. S1 and S2, without murmurs, gallops, or ru bs. VASCULAR: No Edema. Peripheral pulses normal and equal in all extremities. ABDOMEN: Soft, non tender and non distended. No rebound or guarding, and no masses palpated. Bowel Sounds normal. MUSCULOSKELETAL: Good range of motion of all major joints. Extremities without clubbing, cyanosis or edema. NEUROLOGIC EXAM: Alert and oriented x 3 left facial droop motor strength on the right is 4/5. Speech normal. Follows commands. Gait not assessed at this time PSYCHIATRIC: Mood normal. SKIN: detail exam as documented in skin assessment - Constitutional Vitals: Temp Pulse Resp BP Pulse Ox 98.3 F 69 20 122/57 96 04/14/21 04:17 04/14/21 08:15 04/14/21 08:15 04/14/21 04:17 04/14/21 09:17 HEART Score - HEART Score Troponin: Troponin T < 0.010 ng/mL (0.00-0.029) 04/12/21 13:35 Results - Labs CBC & Chem 7: 04/13/21 05:27 04/13/21 05:27 Labs: Laboratory Last Values WBC 5.0 K/mm3 (4.5-11.0) 04/13/21 05:27 RBC 4.01 M/mm3 (3.65-5.03) 04/13/21 05:27 Hgb 12.5 gm/dl (11.8-15.2) 04/13/21 05:27 Hct 36.7 % (35.5-45.6) 04/13/21 05:27 MCV 92 fl (84-94) 04/13/21 05:27 MCH 31 pg (28-32) 04/13/21 05:27 MCHC 34 % (32-34) 04/13/21 05:27 RDW 13.7 % (13.2-15.2) 04/13/21 05:27 Plt Count 222 K/mm3 (140-440) 04/13/21 05:27 Lymph % (Auto) Sr. Manager [employer] 04/13/21 05:27 Add Manual Diff Complete 04/13/21 05:27 Total Counted 100 04/13/21 05:27 Seg Neutrophils % Sr. Manager [employer] 04/13/21 05:27 Seg Neuts % (Manual) 37.0 % (40.0-70.0) L 04/13/21 05:27 Lymphocytes % (Manual) 54.0 % (13.4-35.0) H 04/13/21 05:27 Reactive Lymphs % (Man) 4.0 % 04/12/21 13:35 Monocytes % (Manual) 6.0 % (0.0-7.3) 04/13/21 05:27 Eosinophils % (Manual) 3.0 % (0.0-4.3) 04/13/21 05:27 Nucleated RBC % Not Reportable 04/13/21 05:27 Seg Neutrophils # Man 1.9 K/mm3 (1.8-7.7) 04/13/21 05:27 Band Neutrophils # 0.0 K/mm3 04/13/21 05:27 Lymphocytes # (Manual) 2.7 K/mm3 (1.2-5.4) 04/13/21 05:27 Abs React Lymphs (Man) 0.0 K/mm3 04/13/21 05:27 Monocytes # (Manual) 0.3 K/mm3 (0.0-0.8) 04/13/21 05:27 Eosinophils # (Manual) 0.2 K/mm3 (0.0-0.4) 04/13/21 05:27 Basophils # (Manual) 0.0 K/mm3 (0.0-0.1) 04/13/21 05:27 Metamyelocytes # 0.0 K/mm3 04/13/21 05:27 Myelocytes # 0.0 K/mm3 04/13/21 05:27 Promyelocytes # 0.0 K/mm3 04/13/21 05:27 Blast Cells # 0.0 K/mm3 04/13/21 05:27 WBC Morphology Not Reportable 04/13/21 05:27 Hypersegmented Neuts Not Reportable 04/13/21 05:27 Hyposegmented Neuts Not Reportable 04/13/21 05:27 Hypogranular Neuts Not Reportable 04/13/21 05:27 Smudge Cells Not Reportable 04/13/21 05:27 Toxic Granulation Not Reportable 04/13/21 05:27 Toxic Vacuolation Not Reportable 04/13/21 05:27 Dohle Bodies Not Reportable 04/13/21 05:27 Pelger-Huet Anomaly Not Reportable 04/13/21 05:27 Natasha Rods Not Reportable 04/13/21 05:27 Platelet Estimate Not Reportable 04/13/21 05:27 Clumped Platelets Not Reportable 04/13/21 05:27 Plt Clumps, EDTA Not Reportable 04/13/21 05:27 Large Platelets Not Reportable 04/13/21 05:27 Giant Platelets Not Reportable 04/13/21 05:27 Platelet Satelliting Not Reportable 04/13/21 05:27 Plt Morphology Comment Not Reportable 04/13/21 05:27 RBC Morphology Not Reportable 04/13/21 05:27 Dimorphic RBCs Not Reportable 04/13/21 05:27 Polychromasia Not Reportable 04/13/21 05:27 Hypochromasia Not Reportable 04/13/21 05:27 Poikilocytosis Not Reportable 04/13/21 05:27 Anisocytosis Few 04/13/21 05:27 Microcytosis Not Reportable 04/13/21 05:27 Macrocytosis Not Reportable 04/13/21 05:27 Spherocytes Not Reportable 04/13/21 05:27 Pappenheimer Bodies Not Reportable 04/13/21 05:27 Sickle Cells Not Reportable 04/13/21 05:27 Target Cells Not Reportable 04/13/21 05:27 Tear Drop Cells Not Reportable 04/13/21 05:27 Ovalocytes Not Reportable 04/13/21 05:27 Helmet Cells Not Reportable 04/13/21 05:27 Mckeon-[place] Bodies Not Reportable 04/13/21 05:27 [place] Rings Not Reportable 04/13/21 05:27 [place] Cells Not Reportable 04/13/21 05:27 Bite Cells Not Reportable 04/13/21 05:27 Crenated Cell Not Reportable 04/13/21 05:27 Elliptocytes Not Reportable 04/13/21 05:27 Acanthocytes (Spur) Not Reportable 04/13/21 05:27 Rouleaux Not Reportable 04/13/21 05:27 Hemoglobin C Crystals Not Reportable 04/13/21 05:27 Schistocytes Not Reportable 04/13/21 05:27 Malaria parasites Not Reportable 04/13/21 05:27 Velasquez Bodies Not Reportable 04/13/21 05:27 Hem Pathologist Commnt No 04/13/21 05:27 PT 13.2 Sec. (12.2-14.9) 04/12/21 13:35 INR 0.94 (0.87-1.13) 04/12/21 13:35 APTT 29.4 Sec. (24.2-36.6) 04/12/21 13:35 Thrombin Time 17.1 Sec. (15.1-19.6) 04/12/21 13:35 Sodium 138 mmol/L (137-145) 04/13/21 05:27 Potassium 3.5 mmol/L (3.6-5.0) L 04/13/21 05:27 Chloride 104.5 mmol/L (98-107) 04/13/21 05:27 Carbon Dioxide 24 mmol/L (22-30) 04/13/21 05:27 Anion Gap 13 mmol/L 04/13/21 05:27 BUN 10 mg/dL (9-20) 04/13/21 05:27 Creatinine 1.0 mg/dL (0.8-1.3) 04/13/21 05:27 Estimated GFR > 60 ml/min 04/13/21 05:27 BUN/Creatinine Ratio 10 % 04/13/21 05:27 Glucose 142 mg/dL (75-100) H 04/13/21 05:27 POC Glucose 130 mg/dL (70-105) H 04/14/21 08:01 Hemoglobin A1c 7.0 % (4-6) H 04/12/21 21:02 Calcium 8.9 mg/dL (8.4-10.2) 04/13/21 05:27 Magnesium 1.80 mg/dL (1.7-2.3) 04/12/21 13:35 Total Bilirubin 0.40 mg/dL (0.1-1.2) 04/13/21 05:27 AST 25 units/L (5-40) 04/13/21 05:27 ALT 15 units/L (7-56) 04/13/21 05:27 Alkaline Phosphatase 63 units/L (35-129) 04/13/21 05:27 Total Creatine Kinase 697 units/L (55-170) H 04/12/21 13:35 Troponin T < 0.010 ng/mL (0.00-0.029) 04/12/21 13:35 Total Protein 6.8 g/dL (6.3-8.2) 04/13/21 05:27 Albumin 3.7 g/dL (3.9-5) L 04/13/21 05:27 Albumin/Globulin Ratio 1.2 % 04/13/21 05:27 Crews/IV: Voiding Method Toilet Active Medications - Current Medications Current Medications: Generic Name Dose Route Start Last Admin Trade Name Freq PRN Reason Stop Dose Admin Acetaminophen 650 mg 04/12/21 20:55 Acetaminophen 325 Mg Tab PO Q4H PRN Pain MILD(1-3)/Fever >100.5/DELAROSA Al Hydrox/Mg Hydrox/Simethicone 30 ml 04/12/21 20:55 Alum-Mag Hydroxide-Simethicone [id number]/5ml Oral Liqd 30 Ml PO Q4H PRN Indigestion Aspirin 81 mg 04/14/21 10:00 04/14/21 10:43 Aspirin 81 Mg Tab Chew PO 81 mg QDAY DON Administration Atorvastatin Calcium 40 mg 04/13/21 22:00 04/13/21 21:01 Atorvastatin 40 Mg Tab PO 40 mg QHS DON Administration Hydralazine HCl 10 mg 04/13/21 10:19 Hydralazine 20 Mg/1 Ml Inj IV Q4H PRN Hypertension Hydrochlorothiazide 25 mg 04/13/21 11:00 04/14/21 10:43 Hydrochlorothiazide 25 Mg Tab PO 25 mg QDAY DON Administration Magnesium Hydroxide 30 ml 04/12/21 20:55 Magnesium Hydroxide (Mom) Oral Liqd Udc PO Q4H PRN Constipation Metoclopramide HCl 10 mg 04/12/21 20:55 Metoclopramide 10 Mg/2 Ml Inj IV Q6H PRN Nausea And Vomiting Ondansetron HCl 4 mg 04/12/21 20:55 Ondansetron 4 Mg/2 Ml Inj IV Q8H PRN Nausea And Vomiting Senna 8.6 mg 04/12/21 20:55 Sennosides 8.6 Mg Tab PO Q12HR PRN Constipation Sodium Chloride 10 ml 04/12/21 22:00 04/14/21 10:44 Sodium Chloride 0.9% 10 Ml Flush Syringe IV 10 ml BID DON Administration Sodium Chloride 10 ml 04/12/21 20:55 Sodium Chloride 0.9% 10 Ml Flush Syringe IV PRN PRN LINE FLUSH Nutrition/Malnutrition Assess - Dietary Evaluation Nutrition/Malnutrition Findings: Nutrition Notes Start: 04/13/21 09:43 Freq: Status: Active Protocol: Document 04/13/21 09:43 ROSELYN (Rec: 04/13/21 09:43 [id number]) Nutrition Notes Need for Assessment generated from: luggage liner Initial or Follow up Brief Note Subjective/Other Information RN screen for skin risk. Brendon score 20. Likely an error. Nutrition Intervention Revisit per MD consult or patient Sign Off request:
--- NOTE | 2021-04-14 13:59 | Magnetic Resonance Report ---
MR brain wo con INDICATION / CLINICAL INFORMATION: right sided weakness, RT FACIAL DROOP. TECHNIQUE: Multiplanar, multisequence MR images of the brain were obtained. COMPARISON: CT April 06 6021 FINDINGS: INTRACRANIAL: No restricted diffusion. No hemorrhage. Ventricular caliber is normal. No extra-axial c ollection. No mass. No herniation. Major intracranial vascular flow voids are preserved. Remote bila teral lacunar infarctions in the basal ganglia, left posterior limb of internal capsule, and olivares r adiata. Associated Wallerian degeneration seen within the left erica cerebri extending into the grant. ORBITS: No significant abnormality of visualized orbits. SINUSES / MASTOIDS: No significant abnormality of visualized sinuses and mastoid air cells. ADDITIONAL FINDINGS: None. IMPRESSION: 1. No acute intracranial abnormality. 2. Numerous prior remote lacunar infarctions as described above. Signer Name: Johnathon Kong MD Signed: 04/14/2021 1:55 PM Workstation Name: [id number]
--- NOTE | 2021-04-14 15:10 | Consultation ---
History of Present Illness Consult date: 04/14/21 Reason for Consult: CVA Chief complaint: Right-sided weakness/numbness History of present illness: 60 yo male with htn, dm, alcohol who presents with a LKNormal at bedtime around 23:00 and then waking up on the morning of admission with right-sided weakness and numbness. Notes he suffered a fall after the symptoms but w/ no head/neck injury. Currently, notes some improvement in his ambulation and leg strength but not completely back to his baseline. Notes his blood pressure is not well- controlled in the outpatient setting. Past History Past Medical History: diabetes, hypertension Social history: alcohol abuse Medications and Allergies Allergies Allergy/AdvReac Type Severity Reaction Status Date / Time No Known Allergies Allergy Unverified 04/12/21 13:07 Home Medications Medication Instructions Recorded Confirmed Last Taken Type Aspirin BABY CHEW TAB 81 mg PO DAILY 04/13/21 04/13/21 Unknown History Active Meds: Active Medications Acetaminophen (Acetaminophen 325 Mg Tab) 650 mg PO Q4H PRN PRN Reason: Pain MILD(1-3)/Fever >100.5/DELAROSA Al Hydrox/Mg Hydrox/Simethicone (Alum-Mag Hydroxide-Simethicone 417-510-09wk/5ml Oral Liqd 30 Ml) 30 ml PO Q4H PRN PRN Reason: Indigestion Aspirin (Aspirin 81 Mg Tab Chew) 81 mg PO QDAY [facility] Last Admin: 04/14/21 10:43 Dose: 81 mg Documented by: Atorvastatin Calcium (Atorvastatin 40 Mg Tab) 40 mg PO QHS [facility] Last Admin: 04/13/21 21:01 Dose: 40 mg Documented by: Hydralazine HCl (Hydralazine 20 Mg/1 Ml Inj) 10 mg IV Q4H PRN PRN Reason: Hypertension Hydrochlorothiazide (Hydrochlorothiazide 25 Mg Tab) 25 mg PO QDAY [facility] Last Admin: 04/14/21 10:43 Dose: 25 mg Documented by: Magnesium Hydroxide (Magnesium Hydroxide (Mom) Oral Liqd Udc) 30 ml PO Q4H PRN PRN Reason: Constipation Metoclopramide HCl (Metoclopramide 10 Mg/2 Ml Inj) 10 mg IV Q6H PRN PRN Reason: Nausea And Vomiting Ondansetron HCl (Ondansetron 4 Mg/2 Ml Inj) 4 mg IV Q8H PRN PRN Reason: Nausea And Vomiting Senna (Sennosides 8.6 Mg Tab) 8.6 mg PO Q12HR PRN PRN Reason: Constipation Sodium Chloride (Sodium Chloride 0.9% 10 Ml Flush Syringe) 10 ml IV BID [facility] Last Admin: 04/14/21 10:44 Dose: 10 ml Documented by: Sodium Chloride (Sodium Chloride 0.9% 10 Ml Flush Syringe) 10 ml IV PRN PRN PRN Reason: LINE FLUSH Review of Systems All systems: negative (as per HPI;) Physical Examination - Vital Signs Vital Signs: Vital Signs Temp Pulse Resp BP Pulse Ox 98.2 F 82 14 217/109 99 04/12/21 13:05 04/12/21 13:05 04/12/21 13:05 04/12/21 13:05 04/12/21 13:05 - Physical Exam Narrative exam: Gen: nad, well-nourished; Head: normocephalic; Eyes: no gaze deviation; no ptosis; ENT: normal vocalization; CVS: warm and well-perfused; Pulm: no respiratory distress; GI: appears non-distended; Ext: no cyanosis at distal extremities; Skin: no acute rash or hives at distal extremities; Heme: no pathologic bruising or ecchymosis at distal extremities; Neuro: alert, oriented to name, age, month, year, surroundings, mild dysarthria, no aphasia, CN 2 - PERRL, visual shook grossly intact, CN 3, 4, 6 - EOMI, CN 5 - facial sensation symmetric to light touch, CN 7 - facial movement decreased on the right (mild to moderate), CN 8 - hearing grossly intact, CN 9, 10 - uvula midline, CN 11 - shrug symmetric, CN 12 - tongue midline; Motor - at least 4+/5 in all exts except right hand internal medicine nurse at 4/5 and right plantar flexion at 4/5; Sensory - light touch symmetric, Cerebellar - fnf /hts intact, Gait - deferred secondary to fall risk; NIHSS (1a.) Level of Consciousness:0 (1b.) LOC Questions:0 (1c.) LOC Commands:0 (2.) Best Gaze:0 (3.) Visual:0 (4.) Facial Palsy:1 (5a.) Motor Arm, Left:0 (5b.) Motor Arm, Right:0 (6a.) Motor Leg, Left:0 (6b.) Motor Leg, Right:0 (7.) Limb Ataxia:0 (8.) Sensory:0 (9.) Best Language:0 (10.) Dysarthria:1 (11.) Extinction and Inattention:0 NIHSS Total Score: 2 Results - Laboratory Findings CBC and BMP: 04/13/21 05:27 04/13/21 05:27 Abnormal Lab Findings: Abnormal Labs 04/12/21 04/12/21 04/12/21 13:07 13:35 13:35 Seg Neuts % (Manual) 38.0 L Lymphocytes % (Manual) 51.0 H Potassium Glucose 110 H POC Glucose 141 H Hemoglobin A1c Total Creatine Kinase 697 H Albumin 04/12/21 04/13/21 04/13/21 21:02 05:27 05:27 Seg Neuts % (Manual) 37.0 L Lymphocytes % (Manual) 54.0 H Potassium 3.5 L Glucose 142 H POC Glucose Hemoglobin A1c 7.0 H Total Creatine Kinase Albumin 3.7 L 04/13/21 04/14/21 04/14/21 22:05 08:01 11:36 Seg Neuts % (Manual) Lymphocytes % (Manual) Potassium Glucose POC Glucose 239 H 130 H 158 H Hemoglobin A1c Total Creatine Kinase Albumin Assessment and Plan 60 yo male with htn, dm, alcohol who presents with a LKNormal at bedtime around 23:00 and then waking up on the morning of admission with right-sided weakness and numbness. 1. Acute Ischemic Stroke (small-vessel; lacunar): ASA 325 mg PO qday; Plavix 75 mg PO qday x21 days; MRI Brain w/o contrast (images not available; official report pending), low EF noted on TTEcho, aim for a goal LDL of 70 and nomal tsh/t4/t3; confirm A1c; telemetry, SBP goal 160-200 mmHg and DBP 80-100 mmHg for 24 more hours. Statin therapy for a goal LDL of 70, when patient passes swallow evaluation. PT/OT/ST/Swallow evaluation. Long-term risk-factor modification, including a strict diet/exercise regimen for secondary stroke prophylaxis. 2. Hypertension - goal SBP 160-200 mmHg and DBP 80-100 mmHg for 24 more hours. 3. Diabetes Mellitus - maintain euglycemia; long-term modification w/ meds, diet, and exercise. 4. Hyperlipidemia - goal LDL of 70 w/ statin therapy if no contraindications. 5. Dysarthria / Dysphagia - st / swallow evaluation/monitoring. 6. Right-sided weakness - pt/ot evaluation/monitoring. 7. Unsteady Gait - pt/ot evaluation/monitoring. 8. Followup with Stroke Neurology in 6 weeks. hCay Jimenez MD Neurology
--- NOTE | 2021-04-14 18:00 | History and Physical Report ---
History of Present Illness Date of admission: 04/14/21 10:15 Chief complaint: I feel weak on the right side History of present illness: 60 YO Male with HTN, DM presents to ED for evaluation. Patient reported "I feel weak on my right side". Patient states that he was in his usual state of health at bedtime around 2100 hrs. Patient states that he awoke from sleep this a.m. around 0800 hrs. and was found to have right arm and leg weakness as well as right facial droop and slurred speech. EMS was notified and upon arrival the patient was found to be in distress with a neurologic deficit. A code stroke was called. Patient transported to [facility] via private vehicle for further care and evaluation of the aforementioned symptoms. Patient seen and evaluated in the emergency department. All lab and imaging studies reviewed. Patient found to have symptoms consistent with CVA as well as accelerated hypertension. Patient placed in observation status and admitted to medical floor and initiated on CVA protocol. Telemetry neurology consulted in ED. Patient deemed outside therapeutic window for TPA. Patient denies fever, chills, chest pain, palpitation, productive cough, skin rash, recent ill contacts, unilateral leg swelling, calf pain, prolonged travel/immobility, or known exposure to COVID-19. No prior admission for review. No medication listed at time of admission for reconciliation. Advanced care planning conducted in ED. Past History Past Medical History: diabetes, hypertension Past Surgical History: Other (Hand surgery) Social history: , alcohol abuse Family history: diabetes, hypertension Medications and Allergies Allergies Allergy/AdvReac Type Severity Reaction Status Date / Time No Known Allergies Allergy Unverified 04/12/21 13:07 Home Medications Medication Instructions Recorded Confirmed Last Taken Type Aspirin BABY CHEW TAB 81 mg PO DAILY 04/13/21 04/13/21 Unknown History Active Meds: Active Medications Acetaminophen (Acetaminophen 325 Mg Tab) 650 mg PO Q4H PRN PRN Reason: Pain MILD(1-3)/Fever >100.5/DELAROSA Al Hydrox/Mg Hydrox/Simethicone (Alum-Mag Hydroxide-Simethicone [phone]/5ml Oral Liqd 30 Ml) 30 ml PO Q4H PRN PRN Reason: Indigestion Aspirin (Aspirin 81 Mg Tab Chew) 81 mg PO QDAY [facility] Last Admin: 04/14/21 10:43 Dose: 81 mg Documented by: Atorvastatin Calcium (Atorvastatin 40 Mg Tab) 40 mg PO QHS [facility] Last Admin: 04/13/21 21:01 Dose: 40 mg Documented by: Hydralazine HCl (Hydralazine 20 Mg/1 Ml Inj) 10 mg IV Q4H PRN PRN Reason: Hypertension Hydrochlorothiazide (Hydrochlorothiazide 25 Mg Tab) 25 mg PO QDAY [facility] Last Admin: 04/14/21 10:43 Dose: 25 mg Documented by: Magnesium Hydroxide (Magnesium Hydroxide (Mom) Oral Liqd Udc) 30 ml PO Q4H PRN PRN Reason: Constipation Metoclopramide HCl (Metoclopramide 10 Mg/2 Ml Inj) 10 mg IV Q6H PRN PRN Reason: Nausea And Vomiting Ondansetron HCl (Ondansetron 4 Mg/2 Ml Inj) 4 mg IV Q8H PRN PRN Reason: Nausea And Vomiting Senna (Sennosides 8.6 Mg Tab) 8.6 mg PO Q12HR PRN PRN Reason: Constipation Sodium Chloride (Sodium Chloride 0.9% 10 Ml Flush Syringe) 10 ml IV BID [facility] Last Admin: 04/14/21 10:44 Dose: 10 ml Documented by: Sodium Chloride (Sodium Chloride 0.9% 10 Ml Flush Syringe) 10 ml IV PRN PRN PRN Reason: LINE FLUSH Review of Systems Constitutional: no weight loss, no weight gain, no chills, no sweats Ears, nose, mouth and throat: no ear pain, no ear discharge, no decreased hearing, no nose pain, no nasal congestion, no sinus pain Cardiovascular: no chest pain, no orthopnea, no rapid/irregular heart beat, no edema, no syncope Respiratory: no cough, no excessive sputum, no hemoptysis, no dyspnea on exertion Gastrointestinal: no abdominal pain, no vomiting, no diarrhea, no constipation, no hematemesis Genitourinary Male: no hematuria, no flank pain, no discharge, no urinary frequency, no urinary hesitancy Rectal: no pain, no incontinence Musculoskeletal: no neck pain, no shooting arm pain, no shooting leg pain Integumentary: no rash, no pruritis, no redness, no wounds, no blisters Neurological: no head injury, no paralysis, no parathesias, no tingling, no seizures, no syncope Psychiatric: no anxiety, no memory loss, no sleep disturbances, no insomnia, no change in appetite, no disorientation Endocrine: no cold intolerance, no polyphagia, no polyuria Hematologic/Lymphatic: no easy bruising, no easy bleeding, no lymphadenopathy, no lymphedema Allergic/Immunologic: no urticaria, no wheezing, no anaphylaxis, no angioedema Exam - Constitutional Vitals: Temp Pulse Resp BP Pulse Ox 98.2 F 64 20 157/84 96 04/14/21 17:00 04/14/21 17:00 04/14/21 17:00 04/14/21 17:00 04/14/21 17:00 General appearance: Present: mild distress - EENT Eyes: Present: PERRL ENT: hearing intact, clear oral mucosa - Neck Neck: Present: supple, normal ROM - Respiratory Respiratory effort: normal Respiratory: bilateral: CTA - Cardiovascular Heart Sounds: Present: S1 & S2. Absent: rub, click - Extremities Extremities: pulses symmetrical, No edema Peripheral Pulses: within normal limits - Abdominal General gastrointestinal: Present: soft, non-tender, non-distended, normal bowel sounds Male genitourinary: Present: normal - Integumentary Integumentary: Present: clear, warm, dry - Musculoskeletal Musculoskeletal: right sided weakness - Psychiatric Psychiatric: appropriate mood/affect, intact judgment & insight - Neurologic Neurologic: CNII-XII intact, moves all extremities HEART Score - HEART Score Troponin: Troponin T < 0.010 ng/mL (0.00-0.029) 04/12/21 13:35 Results - Labs CBC & Chem 7: 04/13/21 05:27 04/13/21 05:27 Labs: Abnormal lab results 04/13/21 04/14/21 04/14/21 Range/Units 22:05 08:01 11:36 POC Glucose 239 H 130 H 158 H (70-105) mg/dL 04/14/21 Range/Units 17:00 POC Glucose 194 H (70-105) mg/dL Assessment and Plan - Patient Problems (1) CVA (cerebral vascular accident) Current Visit: Yes Status: Acute Qualifiers: Laterality of affected vessel: right Plan to address problem: CVA protocol: CT head, neuro check, seizure precaution, aspiration precaution, lipid panel, statin therapy, antiplatelet therapy, neuro check, telemetry neurology consulted in ED. Carotid Doppler, echocardiogram, (2) Accelerated hypertension Current Visit: Yes Status: Acute Plan to address problem: Monitor blood pressure every shift, permissive hypertension overnight. (3) Diabetes Current Visit: Yes Status: Acute Plan to address problem: Consistent carbohydrate diet, hypoglycemia protocol, insulin protocol, supportive care. (4) Advance care planning Current Visit: Yes Status: Acute Plan to address problem: Disease education conducted, care plan discussed, diagnosis discussed, prognosis discussed, patient knowledges understanding agree with care plan, +30 minutes.
--- NOTE | 2021-04-15 08:04 | Progress Note ---
Assessment and Plan Assessment and plan: Patient is a 60-year-old male who presented to the ER with complaint of right arm, right leg weakness, right-sided facial droop, slurred speech, which were present upon waking up this morning at 8 or 9:00 in the morning. He is right- hand dominant. He does use tobacco. He believes his last known well time is going to bed last night, although he is not sure what specific time he went to bed. He also reported a fall this morning onto his right leg. He denies physical pain. He denies Covid symptomatology. His neurologic symptoms are constant, do not radiate anywhere, and do not have exacerbating or relieving factors. He feels fairly anxious at this time. 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 If no improvement will add an LASHONDA inhibitor. 04/15/2021 -MRI is significant for numerous prior remote lacunar infarcts, no acute fracture identified. Neurology evaluation appreciated. -Echo was done and ejection fraction was 25 to 30%, cardiology consulted for evaluation of cardiomyopathy -PT OT evaluated and okay to discharge with no needs -Blood pressures controlled and continue current medication regimens. Patient was evaluated by cardiology and recommend blood pressure control and outpatient follow-up. Patient stable for discharge. History Interval history: Patient was seen and evaluated this morning Patient did not have any complaints No focal weakness Patient wants to go home Hospitalist Physical - Physical exam Narrative exam: Not in cardiopulmonary distress. The patient appeared well nourished and normally developed. Vital signs as documented. Head exam is unremarkable. No scleral icterus . Neck is without jugular venous distension, thyromegaly, or carotid bruits. Lungs are clear to auscultation. Cardiac exam reveals regular rate and Rhythm. Abdominal exam reveals normal bowel sounds, nontender, no organomegaly. Extremities are nonedematous and both femoral and pedal pulses are normal. CONTAINER WASHER MACHINE: Alert and oriented 3. No focal weakness. - Constitutional Vitals: Temp Pulse Resp BP Pulse Ox 98.5 F 76 20 131/82 98 04/14/21 21:21 04/14/21 22:00 04/14/21 22:00 04/14/21 21:21 04/14/21 22:00 General appearance: Present: mild distress HEART Score - HEART Score Troponin: Troponin T < 0.010 ng/mL (0.00-0.029) 04/12/21 13:35 Results - Labs CBC & Chem 7: 04/13/21 05:27 04/13/21 05:27 Labs: Laboratory Last Values WBC 5.0 K/mm3 (4.5-11.0) 04/13/21 05:27 RBC 4.01 M/mm3 (3.65-5.03) 04/13/21 05:27 Hgb 12.5 gm/dl (11.8-15.2) 04/13/21 05:27 Hct 36.7 % (35.5-45.6) 04/13/21 05:27 MCV 92 fl (84-94) 04/13/21 05:27 MCH 31 pg (28-32) 04/13/21 05:27 MCHC 34 % (32-34) 04/13/21 05:27 RDW 13.7 % (13.2-15.2) 04/13/21 05:27 Plt Count 222 K/mm3 (140-440) 04/13/21 05:27 Lymph % (Auto) Engineered Wood Designer 04/13/21 05:27 Add Manual Diff Complete 04/13/21 05:27 Total Counted 100 04/13/21 05:27 Seg Neutrophils % Engine[employer] Wood Designer 04/13/21 05:27 Seg Neuts % (Manual) 37.0 % (40.0-70.0) L 04/13/21 05:27 Lymphocytes % (Manual) 54.0 % (13.4-35.0) H 04/13/21 05:27 Reactive Lymphs % (Man) 4.0 % 04/12/21 13:35 Monocytes % (Manual) 6.0 % (0.0-7.3) 04/13/21 05:27 Eosinophils % (Manual) 3.0 % (0.0-4.3) 04/13/21 05:27 Nucleated RBC % Not Reportable 04/13/21 05:27 Seg Neutrophils # Man 1.9 K/mm3 (1.8-7.7) 04/13/21 05:27 Band Neutrophils # 0.0 K/mm3 04/13/21 05:27 Lymphocytes # (Manual) 2.7 K/mm3 (1.2-5.4) 04/13/21 05:27 Abs React Lymphs (Man) 0.0 K/mm3 04/13/21 05:27 Monocytes # (Manual) 0.3 K/mm3 (0.0-0.8) 04/13/21 05:27 Eosinophils # (Manual) 0.2 K/mm3 (0.0-0.4) 04/13/21 05:27 Basophils # (Manual) 0.0 K/mm3 (0.0-0.1) 04/13/21 05:27 Metamyelocytes # 0.0 K/mm3 04/13/21 05:27 Myelocytes # 0.0 K/mm3 04/13/21 05:27 Promyelocytes # 0.0 K/mm3 04/13/21 05:27 Blast Cells # 0.0 K/mm3 04/13/21 05:27 WBC Morphology Not Reportable 04/13/21 05:27 Hypersegmented Neuts Not Reportable 04/13/21 05:27 Hyposegmented Neuts Not Reportable 04/13/21 05:27 Hypogranular Neuts Not Reportable 04/13/21 05:27 Smudge Cells Not Reportable 04/13/21 05:27 Toxic Granulation Not Reportable 04/13/21 05:27 Toxic Vacuolation Not Reportable 04/13/21 05:27 Dohle Bodies Not Reportable 04/13/21 05:27 Pelger-Huet Anomaly Not Reportable 04/13/21 05:27 Natasha Rods Not Reportable 04/13/21 05:27 Platelet Estimate Not Reportable 04/13/21 05:27 Clumped Platelets Not Reportable 04/13/21 05:27 Plt Clumps, EDTA Not Reportable 04/13/21 05:27 Large Platelets Not Reportable 04/13/21 05:27 Giant Platelets Not Reportable 04/13/21 05:27 Platelet Satelliting Not Reportable 04/13/21 05:27 Plt Morphology Comment Not Reportable 04/13/21 05:27 RBC Morphology Not Reportable 04/13/21 05:27 Dimorphic RBCs Not Reportable 04/13/21 05:27 Polychromasia Not Reportable 04/13/21 05:27 Hypochromasia Not Reportable 04/13/21 05:27 Poikilocytosis Not Reportable 04/13/21 05:27 Anisocytosis Few 04/13/21 05:27 Microcytosis Not Reportable 04/13/21 05:27 Macrocytosis Not Reportable 04/13/21 05:27 Spherocytes Not Reportable 04/13/21 05:27 Pappenheimer Bodies Not Reportable 04/13/21 05:27 Sickle Cells Not Reportable 04/13/21 05:27 Target Cells Not Reportable 04/13/21 05:27 Tear Drop Cells Not Reportable 04/13/21 05:27 Ovalocytes Not Reportable 04/13/21 05:27 Helmet Cells Not Reportable 04/13/21 05:27 Mckeon-Damar Bodies Not Reportable 04/13/21 05:27 [place] Rings Not Reportable 04/13/21 05:27 Isauro Cells Not Reportable 04/13/21 05:27 Bite Cells Not Reportable 04/13/21 05:27 Crenated Cell Not Reportable 04/13/21 05:27 Elliptocytes Not Reportable 04/13/21 05:27 Acanthocytes (Spur) Not Reportable 04/13/21 05:27 Rouleaux Not Reportable 04/13/21 05:27 Hemoglobin C Crystals Not Reportable 04/13/21 05:27 Schistocytes Not Reportable 04/13/21 05:27 Malaria parasites Not Reportable 04/13/21 05:27 Velasquez Bodies Not Reportable 04/13/21 05:27 Hem Pathologist Commnt No 04/13/21 05:27 PT 13.2 Sec. (12.2-14.9) 04/12/21 13:35 INR 0.94 (0.87-1.13) 04/12/21 13:35 APTT 29.4 Sec. (24.2-36.6) 04/12/21 13:35 Thrombin Time 17.1 Sec. (15.1-19.6) 04/12/21 13:35 Sodium 138 mmol/L (137-145) 04/13/21 05:27 Potassium 3.5 mmol/L (3.6-5.0) L 04/13/21 05:27 Chloride 104.5 mmol/L (98-107) 04/13/21 05:27 Carbon Dioxide 24 mmol/L (22-30) 04/13/21 05:27 Anion Gap 13 mmol/L 04/13/21 05:27 BUN 10 mg/dL (9-20) 04/13/21 05:27 Creatinine 1.0 mg/dL (0.8-1.3) 04/13/21 05:27 Estimated GFR > 60 ml/min 04/13/21 05:27 BUN/Creatinine Ratio 10 % 04/13/21 05:27 Glucose 142 mg/dL (75-100) H 04/13/21 05:27 POC Glucose 126 mg/dL (70-105) H 04/15/21 07:44 Hemoglobin A1c 7.0 % (4-6) H 04/12/21 21:02 Calcium 8.9 mg/dL (8.4-10.2) 04/13/21 05:27 Magnesium 1.80 mg/dL (1.7-2.3) 04/12/21 13:35 Total Bilirubin 0.40 mg/dL (0.1-1.2) 04/13/21 05:27 AST 25 units/L (5-40) 04/13/21 05:27 ALT 15 units/L (7-56) 04/13/21 05:27 Alkaline Phosphatase 63 units/L (35-129) 04/13/21 05:27 Total Creatine Kinase 697 units/L (55-170) H 04/12/21 13:35 Troponin T < 0.010 ng/mL (0.00-0.029) 04/12/21 13:35 Total Protein 6.8 g/dL (6.3-8.2) 04/13/21 05:27 Albumin 3.7 g/dL (3.9-5) L 04/13/21 05:27 Albumin/Globulin Ratio 1.2 % 04/13/21 05:27 Crews/IV: Voiding Method Toilet Active Medications - Current Medications Current Medications: Generic Name Dose Route Start Last Admin Trade Name Freq PRN Reason Stop Dose Admin Acetaminophen 650 mg 04/12/21 20:55 Acetaminophen 325 Mg Tab PO Q4H PRN Pain MILD(1-3)/Fever >100.5/DELAROSA Al Hydrox/Mg Hydrox/Simethicone 30 ml 04/12/21 20:55 Alum-Mag Hydroxide-Simethicone [phone]/5ml Oral Liqd 30 Ml PO Q4H PRN Indigestion Aspirin 81 mg 04/14/21 10:00 04/14/21 10:43 Aspirin 81 Mg Tab Chew PO 81 mg QDAY DON Administration Atorvastatin Calcium 40 mg 04/13/21 22:00 04/14/21 22:00 Atorvastatin 40 Mg Tab PO 40 mg QHS DON Administration Hydralazine HCl 10 mg 04/13/21 10:19 Hydralazine 20 Mg/1 Ml Inj IV Q4H PRN Hypertension Hydrochlorothiazide 25 mg 04/13/21 11:00 04/14/21 10:43 Hydrochlorothiazide 25 Mg Tab PO 25 mg QDAY DON Administration Magnesium Hydroxide 30 ml 04/12/21 20:55 Magnesium Hydroxide (Mom) Oral Liqd Udc PO Q4H PRN Constipation Metoclopramide HCl 10 mg 04/12/21 20:55 Metoclopramide 10 Mg/2 Ml Inj IV Q6H PRN Nausea And Vomiting Ondansetron HCl 4 mg 04/12/21 20:55 Ondansetron 4 Mg/2 Ml Inj IV Q8H PRN Nausea And Vomiting Senna 8.6 mg 04/12/21 20:55 Sennosides 8.6 Mg Tab PO Q12HR PRN Constipation Sodium Chloride 10 ml 04/12/21 22:00 04/14/21 22:00 Sodium Chloride 0.9% 10 Ml Flush Syringe IV 10 ml BID DON Administration Sodium Chloride 10 ml 04/12/21 20:55 Sodium Chloride 0.9% 10 Ml Flush Syringe IV PRN PRN LINE FLUSH Nutrition/Malnutrition Assess - Dietary Evaluation Nutrition/Malnutrition Findings: Nutrition Notes Start: 04/13/21 09:43 Freq: Status: Active Protocol: Document 04/13/21 09:43 ROSELYN (Rec: 04/13/21 09:43 ROSELYN [id number]) Nutrition Notes Need for Assessment generated from: oxygen therapy teacher Initial or Follow up Brief Note Subjective/Other Information RN screen for skin risk. Brendon score 20. Likely an error. Nutrition Intervention Revisit per MD consult or patient Sign Off request:
[2021-04-15] MEDS: hydroCHLOROthiazide 25 MG TAB PO SCH (10:16)
[2021-04-15] MEDS: ASPIRIN 81 MG TAB CHEW PO SCH (10:16)
--- NOTE | 2021-04-15 10:37 | Discharge Summary ---
Providers - Providers Date of Admission: 04/14/21 10:15 Date of discharge: 04/15/21 Attending physician: FLAVIO KENNY MD 04/13/21 10:11 Consult to Physician [CONS] Routine Comment: Consulting Provider: WILLIAM KASPER Physician Instructions: Reason For Exam: cva 04/13/21 10:14 Occupational Therapy Evaluate and Treat [CONS] Routine Comment: Reason For Exam: right sided weakness Physical Therapy Evaluation and Treat [CONS] Routine Comment: Reason For Exam: right sided weakness 04/15/21 08:00 Consult to Physician [CONS] Routine Comment: Consulting Provider: KONG BELL Physician Instructions: Reason For Exam: severe Cardiomyopathy Primary care physician: [facility] Hospitalization Reason for admission: TIA, hypertensive urgency, history of CVA Condition: Serious Pertinent studies: MRI; significant for remote lacunar infarcts, no acute infarction Hospital course: Patient is a 60-year-old male who presented to the ER with complaint of right arm, right leg weakness, right-sided facial droop, slurred speech, which were present upon waking up this morning at 8 or 9:00 in the morning. He is right- hand dominant. He does use tobacco. He believes his last known well time is going to bed last night, although he is not sure what specific time he went to bed. He also reported a fall this morning onto his right leg. He denies physical pain. He denies Covid symptomatology. His neurologic symptoms are constant, do not radiate anywhere, and do not have exacerbating or relieving factors. He feels fairly anxious at this time. 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 If no improvement will add an LASHONDA inhibitor. 04/15/2021 -MRI is significant for numerous prior remote lacunar infarcts, no acute fracture identified. Neurology evaluation appreciated. -Echo was done and ejection fraction was 25 to 30%, cardiology consulted for evaluation of cardiomyopathy -PT OT evaluated and okay to discharge with no needs -Blood pressures controlled and continue current medication regimens. Patient was evaluated by cardiology and recommend blood pressure control and outpatient follow-up. Patient stable for discharge. Patient discharged with amlodipine, aspirin, Plavix, atorvastatin, Metformin and nicotine patch. Patient's hemoglobin A1c was 7.0. Patient advised to have follow-up with his primary care physician. Patient advised to follow-up with [facility] within 10 days. Disposition: TO HOME OR SELFCARE Final Discharge Diagnosis (Prints w/discharge instructions): TIA. Hypertensive urgency. History of CVA. Diabetes mellitus. Cardiomyopathy Time spent for discharge: 35-minutes - Discharge Diagnoses (1) Diabetes Status: Acute Qualifiers: Diabetes mellitus type: type 2 Diabetes mellitus fpc insulin use: without long term acute care registered nurse use Diabetes mellitus complication status: without complication Qualified Code(s): E11.9 - Type 2 diabetes mellitus without complications Core Measure Documentation - Palliative Care Palliative Care/ Comfort Measures: Not Applicable - Core Measures Any of the following diagnoses?: none Exam - Physical Exam Narrative exam: Not in cardiopulmonary distress. The patient appeared well nourished and normally developed. Vital signs as documented. Head exam is unremarkable. No scleral icterus . Neck is without jugular venous distension, thyromegaly, or carotid bruits. Lungs are clear to auscultation. Cardiac exam reveals regular rate and Rhythm. Abdominal exam reveals normal bowel sounds, nontender, no organomegaly. Extremities are nonedematous and both femoral and pedal pulses are normal. 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 No focal weakness. - Constitutional Vitals: Temp Pulse Resp BP Pulse Ox 98.5 F 76 20 131/82 98 04/14/21 21:21 04/14/21 22:00 04/14/21 22:00 04/14/21 21:21 04/14/21 22:00 Plan Activity: no restrictions Weight Bearing Status: Full Weight Bearing Diet: low salt, diabetic Follow up with: SAMANTHA MA MD [Primary Care Provider] - 3-5 Days KONG BELL MD [Staff Physician] - 10 Days Prescriptions: AtorvaSTATin [Lipitor] 40 mg PO QHS #30 tablet amLODIPine 10 mg PO DAILY #30 tab Aspirin BABY CHEW TAB 81 mg PO DAILY #30 metFORMIN [Glucophage] 500 mg PO BID #60 tablet Nicotine [Habitrol] 14 mg TD DAILY #21 patch Clopidogrel [Plavix] 75 mg PO QDAY #21 tablet
[2021-04-15] MEDS ORDERED: CLOPIDOGREL 75 MG TAB PO SCH (11:00)
[2021-04-15 11:20] LABS: Chol/HDL Ratio 2.08 %
[2021-04-15 12:39] VITALS: BP 151/91
--- NOTE | 2021-04-15 14:18 | Consultation ---
History of Present Illness Consult date: 04/15/21 Consult reason: congestive heart failure History of present illness: The patient is a 60-year-old man admitted to the hospital 3 days ago with acute CVA manifested by right-sided weakness, right facial droop and slurred speech. On his presentation, his systolic blood pressure was over 200. He was not a candidate for thrombolysis, and has been managed conservatively. At this time, his speech is clear, he still has mild right-sided hemiparesis, but is able to ambulate without difficulty. Part of his stroke management during this hospitalization included an echocardiogram ordered by the medical service. The echo demonstrated a dilated cardiomyopathy with severe left ventricular systolic dysfunction, ejection fraction 25 to 30%. As a result of this finding, cardiology was consulted to see the patient today. At the time of our visit, the patient had already been discharged, and was dressed and ready to go home. He has no cardiac complaints, no chest pain, no shortness of breath, no palpitations and no lower extremity edema. He is unaware of any prior cardiac history. He received his previous care at [facility] for hypertension, but has not seen a doctor in several years and has not followed up, has not taking any medications or monitored his blood pressure. I recommended to the patient to remain in the hospital for further evaluation of his cardiomyopathy as indicated, but he adamantly refuses, states that he must go home today. EKG during this hospitalization was normal sinus rhythm, left ventricle hypertrophy with repolarization changes of LVH. His telemetry strips available in the chart do not show any significant dysrhythmias. Past History Past Medical History: diabetes, hypertension Past Surgical History: Other (Hand surgery) Social history: , alcohol abuse Family history: diabetes, hypertension Medications and Allergies Allergies Allergy/AdvReac Type Severity Reaction Status Date / Time No Known Allergies Allergy Unverified 04/12/21 13:07 Home Medications Medication Instructions Recorded Confirmed Last Taken Type Aspirin BABY CHEW TAB 81 mg PO DAILY #30 04/15/21 Unknown Rx AtorvaSTATin [Lipitor] 40 mg PO QHS #30 tablet 04/15/21 Unknown Rx Clopidogrel [Plavix] 75 mg PO QDAY #21 tablet 04/15/21 Unknown Rx Losartan [Cozaar] 50 mg PO QDAY #30 tablet 04/15/21 Unknown Rx Nicotine [Habitrol] 14 mg TD DAILY #21 patch 04/15/21 Unknown Rx Spironolactone [Aldactone] 50 mg PO QDAY #30 tablet 04/15/21 Unknown Rx carvediloL [Coreg] 3.125 mg PO BID #60 tablet 04/15/21 Unknown Rx metFORMIN [Glucophage] 500 mg PO BID #60 tablet 04/15/21 Unknown Rx Review of Systems Cardiovascular: no chest pain, no orthopnea, no palpitations, no rapid/irregular heart beat, no edema, no syncope, no lightheadedness, no shortness of breath Physical Examination Vital Signs Temp Pulse Resp BP Pulse Ox 98.2 F 82 14 217/109 99 04/12/21 13:05 04/12/21 13:05 04/12/21 13:05 04/12/21 13:05 04/12/21 13:05 General appearance: no acute distress HEENT: Positive: PERRL Neck: Positive: neck supple Cardiac: Positive: Reg Rate and Rhythm Lungs: Positive: Decreased Breath Sounds Neuro: Positive: Other (Right-sided hemiparesis) Abdomen: Positive: Soft Male genitourinary: Positive: deferred Skin: Positive: Clear Extremities: Absent: edema Results 04/13/21 05:27 04/13/21 05:27 Lipids 04/15/21 Range/Units 10:49 Triglycerides 52 (2-149) mg/dL Cholesterol 177 (50-199) mg/dL HDL Cholesterol 85 H (40-59) mg/dL Cholesterol/HDL Ratio 2.08 % EKG interpretations - Telemetry EKG Rhythm: Sinus Rhythm Assessment and Plan - Patient Problems (1) Dilated cardiomyopathy Status: Acute Plan to address problem: 60-year-old man with history of longstanding, poorly controlled hypertension and noncompliance, presents with an acute CVA. Work-up shows a dilated cardiomy opathy with severe left ventricular systolic dysfunction, of uncertain chronicity and uncertain etiology. Patient has no cardiac symptoms. He has remained in stable sinus rhythm during this hospitalization. Patient refuses to stay in the hospital for any further cardiac work-up, even though he understands the severity of his underlying cardiac condition. We will recommend at this time that if he is discharged today he should be placed on guideline directed medical therapy including LASHONDA or ARB, carvedilol, spironolactone. We have also recommended aggressive blood pressure management. The neurologists have recommended a combination of aspirin and Plavix. As outpatient, he should have a Lexiscan thallium to rule out an ischemic basis of his cardiomyopathy, and a 30-day event monitor to assess for occult atrial fibrillation.
== END 2021-04-15 13:41 | disposition home or self-care (01) | DRG 315 ==
LOC: ED 13:00 → 3A 20:55 → OBSVTOIN 04-14 10:15
PROVIDERS: ADMIT Internal Medicine; ATTEND Internal Medicine
DX: I42.0 Dilated cardiomyopathy (principal); G45.9 Transient cerebral ischemic attack, unspecified; I16.0 Hypertensive urgency; E11.9 Type 2 diabetes mellitus without complications; I10 Essential (primary) hypertension; G89.29 Other chronic pain; M54.9 Dorsalgia, unspecified; E87.6 Hypokalemia; F17.200 Nicotine dependence, unspecified, uncomplicated; E78.5 Hyperlipidemia, unspecified; Z86.73 Personal history of transient ischemic attack (TIA), and cerebral infarction without residual deficits; Z82.49 Family history of ischemic heart disease and other diseases of the circulatory system; Z83.3 Family history of diabetes mellitus; Z71.6 Tobacco abuse counseling
CPT/HCPCS: 36415; 70450; 70496; 70498; 70551; 80048; 80053; 80061; 82550; 82962; 83036; 83735; 84484; 85007; 85025; 85610; 85670; 85730; 93005; 93306; 96361; 96374; 96375; 99406; G0378; J0360; J7030; Q9967